=== PATIENT | male | born 1955 | race African-American/Black ===

== ENCOUNTER 2018-03-25 10:58 | Emergency (ER) | payer SELFPAY ==
[~2018-03-25] VITALS: Ht 177.8 cm; Wt 68.0 kg
[2018-03-25] MEDS ORDERED: CLINDAMYCIN HC300 MG PO (11:56)
[2018-03-25 16:17] VITALS: BP 153/83
== END 2018-03-25 12:42 | disposition home or self-care (01) ==
LOC: ER 10:58
DX: L02.811 Cutaneous abscess of head [any part, except face] (principal); I10 Essential (primary) hypertension
CPT/HCPCS: 99282

== ENCOUNTER 2019-11-22 09:27 | Emergency (ER) | payer SELFPAY ==
[~2019-11-22] VITALS: Ht 177.8 cm; Wt 68.0 kg
[~2019-11-22 09:27] MED LIST: CLINDAMYCIN HC300 MG PO
--- NOTE | 2019-11-22 09:42 | Emergency Department Note ---
History of Present Illnes History of Present Illness Chief Complaint: Skin Rash or Abscess History of Present Illness This is a 64 year old male Chief Complaint Comment bumps to back of head intermittantly for months. aaox4. ambulatory. He has been treated for this in the past with Clindamycin which helped. No other symptoms. Historian: Patient Arrival Mode: [employer] Required: No Onset (how long ago): week(s) (1) Location: Scalp Quality: sharp Radiation: Reports non-radiation Severity: mild Onset quality: unable to specify Duration (how long): week(s) (1) Timing of current episode: intermittent Progression: waxing and waning Chronicity: recurrent Context: Denies recent illness Relieving factors: none Exacerbating factors: none Associated symptoms: Reports denies other symptoms Treatments prior to arrival: none Past Medical/Family History Physician Review I have reviewed the patient's past medical and family history. Any updates have been documented here. Past Medical History Recent Fever: No Clinical Suspicion of Infectio: No New/Unexplained Change in Ment: No Past Medical History: None Past Surgical History: None Other Last Tetanus: 2018 Review of Systems Review of Systems Constitutional: Reports no symptoms EENTM: Reports no symptoms Cardiovascular: Reports no symptoms Respiratory: Reports no symptoms Gastrointestinal: Reports no symptoms Genitourinary: Reports no symptoms Musculoskeletal: Reports no symptoms Integumentary: Reports no symptoms, Reports lumps (Head) Neurological: Reports no symptoms Psychological: Reports no symptoms Endocrine: Reports no symptoms Hematological/Lymphatic: Reports no symptoms Physical Exam Related Data Allergies: Coded Allergies: No Known Allergies (Unverified , 03/25/18) Triage Vital Signs Vital Signs Date Time Temp Pulse Resp B/P (MAP) Pulse Ox O2 Delivery O2 Flow Rate FiO2 11/22/19 09:30 98.4 93 16 156/93 100 Room Air Vital signs reviewed: Yes Physical Exam CONSTITUTIONAL Constitutional: Present well-developed, Present well-nourished HENT HENT: Present normocephalic, Present oropharynx clear/moist, Present nose normal, Present other (small raised bumps for scalp with no signs of erythema. Wounds are open and appear to have drained) HENT L/R: Present left ext ear normal, Present right ext ear normal EYES Eyes: Reports PERRL, Reports conjunctivae normal NECK Neck: Present ROM normal PULMONARY Pulmonary: Present effort normal, Present breath sounds normal CARDIOVASCULAR Cardiovascular: Present regular rhythm, Present heart sounds normal, Present capillary refill normal, Present normal rate GASTROINTESTINAL Abdominal: Present soft, Present nontender, Present bowel sounds normal GENITOURINARY Genitourinary: Present exam deferred SKIN Skin: Present warm, Present dry MUSCULOSKELETAL Musculoskeletal: Present ROM normal NEUROLOGICAL Neurological: Present alert, Present oriented x 3, Present no gross motor or sensory deficits PSYCHOLOGICAL Psychological: Present mood/affect normal, Present judgement normal Assessment & Plan Medical Decision Making MDM 64-year-old male presents for bumps to the scalp. He has had this in the past and been prescribed clindamycin which helped relieve his symptoms. He endorses washing his head every other day. He denies other symptoms and is otherwise health.Examination shows lesions on the scalp consistent with folliculitis. Wewill prescribe clindamycin and instructed him to follow up with his primary care provider or return to the emergency department for new or worsening symptoms. Additional instructed him to refrain from wearing baseball AND to keep his head clean. Reassessment Reassessment time: 09:43 Reassessment Well appearing, NAD Assessment & Plan Final Impression: (1) Folliculitis Depart Disposition: HOME, SELF-CARE Last Vital Signs Date Time Temp Pulse Resp B/P (MAP) Pulse Ox O2 Delivery O2 Flow Rate FiO2 11/22/19 09:30 98.4 93 16 156/93 100 Room Air Home Meds Active Scripts Clindamycin Hcl (CLINDAMYCIN HCL) 300 Mg Capsule, 1 CAP PO Q6H, #40 Prov:SAM YARBROUGH NP 03/25/18 JOHANNA BALL MD Nov 22, 2019 09:43
[2019-11-22] MEDS ORDERED: CLINDAMYCIN HC150 MG PO (09:44)
--- OUTSIDE RECORDS SUMMARY | 2019-11-22 09:47 | XMS REPORT | Continuity of Care Document ---
Author Author [facility] Organization [facility] Address [address] [place] [address] [address] [place] [address] Phone Unavailable Care Team Providers [facility] Name Role Phone NO, PCP PCP Unavailable Problems This patient has no known problems. Allergies, Adverse Reactions, Alerts This patient has no known allergies or adverse reactions. Medications Ordered Medication Name Filled Medication Name Start Date Stop Da te Current Medication? Ordering Clinician Indication Dosage Frequency Signature (SIG) Comments Components Source Clindamycin Hcl 300 Mg Capsule Clindamycin Hcl 300 Mg Capsul e 2018-03-25 00:00:00 Yes Alfredo Olivares Disc Pad Grinding Machine Feeder 1 Every 6 Hours [facility] Procedures This patient has no known procedures. Encounters Start Date/Time End Date/Time Encounter Type Admission Type [facility] Care Department Encounter ID Source 2018-03-25 10:58:00 2018-03-25 12:42:[address] [facility] [id number] [facility] Results This patient has no known results.
== END 2019-11-22 10:06 | disposition home or self-care (01) ==
LOC: ER 09:45
DX: L73.9 Follicular disorder, unspecified (principal)
CPT/HCPCS: 99283